=== PATIENT | female | born 1985 | race Caucasian/White ===

== ENCOUNTER 2018-11-15 21:13 | Emergency (ER) | payer OTHER ==
[~2018-11-15] VITALS: Ht 170.2 cm; Wt 99.8 kg
[~2018-11-15 21:13] MED LIST: INDERAL60 MG; K-DUR 20 MEQ T20 MEQ PO; MECLIZINE HCL25 M1 PO; NOHOMEMEDICATIONS; PAXIL 20 MG TAB20 MG; SPACERADULT
[2018-11-15] MEDS ORDERED: PROAIR HFA8.5 GM (21:24)
[2018-11-15] MEDS ORDERED: SYMBICORT160 MCG/4. INH (21:25)
[2018-11-15] MEDS ORDERED: PREDNISONE 20 M20 M1 PO (22:23)
[2018-11-15] MEDS ORDERED: NEBULIZER MISCELL (22:39)
[2018-11-15] MEDS ORDERED: ALBUTEROL2.5 MG/31 INH (22:39)
[2018-11-15 22:48] VITALS: BP 149/95
== END 2018-11-15 22:49 | disposition home or self-care (01) ==
LOC: M.ERS 21:13
DX: J45.901 Unspecified asthma with (acute) exacerbation (principal); I10 Essential (primary) hypertension; F41.9 Anxiety disorder, unspecified